=== PATIENT | male | born 1990 | race Caucasian/White ===

== ENCOUNTER 2020-01-06 16:44 | Emergency (ER) | payer OTHER ==
[2020-01-06 16:52] VITALS: TEMP 98.1
--- NOTE | 2020-01-06 17:11 | ED ---
General Adult HPI - General Chief complaint: Chest Pain Stated complaint: Chest pain Time Seen by Provider: 01/06/20 16:56 Source: patient, RN notes reviewed, old records reviewed Mode of arrival: ambulatory Limitations: no limitations - History of Present Illness Initial comments: 29-year-old male history of tetralogy of follow presenting for evaluation of left-sided chest pain. Patient had operative repair as 4-year-old and then again is a 17-year-old with valve replacement. He was placed on propranolol but has not been on this medication in many years. He has not seen a finished cloth examiner or had an echo in at least 10 years. He states he always has a degree of chest pain was long as he can remember, left-sided chest pain. He denies dyspnea. D enies cough or fever. He states he drank heavily 2 days ago and his symptoms have worsened since that time. He states he had several episodes of vomiting after a large amount of alcohol consumption. He states the pain does radiate to his left arm from time to time. - Related Data Allergies Allergy/AdvReac Type Severity Reaction Status Date / Time No Known Allergies Allergy Verified 01/06/20 16:52 Review of Systems ROS Statement: Those systems with pertinent positive or pertinent negative responses have been documented in the HPI. ROS Other: All systems not noted in ROS Statement are negative. 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 History of Any Multi-Drug Resistant Organisms: None Reported Past Surgical History: No Surgical Hx Reported Additional Past Surgical History / Comment(s): open heart x 2 Past Psychological History: No Psychological Hx Reported Smoking Status: Never smoker Past Alcohol Use History: Heavy Past Drug Use History: Marijuana General Exam Limitations: no limitations General appearance: alert, in no apparent distress Head exam: Present: atraumatic, normocephalic Eye exam: Present: normal appearance, PERRL ENT exam: Present: normal exam Neck exam: Present: normal inspection. Absent: tenderness, meningismus Respiratory exam: Present: normal lung sounds bilaterally. Absent: respiratory distress, wheezes Cardiovascular Exam: Present: regular rate, normal rhythm, systolic murmur GI/Abdominal exam: Present: soft. Absent: distended, tenderness, guarding Extremities exam: Present: normal inspection, normal capillary refill. Absent: pedal edema Back exam: Present: normal inspection, full ROM Neurological exam: Present: alert, oriented X3, CN II-XII intact. Absent: motor sensory deficit Psychiatric exam: Present: depressed, flat affect Skin exam: Present: warm, dry, intact. Absent: cyanosis, diaphoretic Course Vital Signs 01/06/20 16:48 Temperature 98.1 F Pulse Rate 59 L Respiratory 16 Rate Blood Pressure 143/88 O2 Sat by Pulse 100 Oximetry EKG Findings - EKG Comments: EKG Findings:: EKG: Sinus bradycardia with AV dissociation, wide-complex, rate of 51, right bundle branch block, QRS duration 150, QTC 431, no ST segment leland vation, there is ST segment depression and T-wave inversion in the precordial leads V1 and V2 V3 and ST segment depression in V4. Medical Decision Making - Medical Decision Making 29-year-old male with cardiac history including repair of tetralogy of fallot, who has been lost to follow-up for 10 years. Presenting with chest pain which is been ongoing but worse over the past 24 hours. Patient's has abnormal EKG with no baseline for comparison. Chest x-ray negative for acute cardiopulmonary disease. Patient has normal CBC, normal CMP, negative troponin. Given this patient's history and the fact that he has not been compliant with medications, has not followed up with a finished cloth examiner in some time. I will place this patient observation for telemetry, serial cardiac enzymes, echo, and cardiology consultation. Case discussed with Dr. Hicks who will admit. - Lab Data Result diagrams: 01/06/20 17:11 01/06/20 17:11 Lab Results 01/06/20 01/06/20 01/06/20 Range/Units 17:11 17:11 17:11 WBC 10.2 (3.8-10.6) k/uL RBC 5.10 (4.30-5.90) m/uL Hgb 17.0 (13.0-17.5) gm/dL Hct 47.5 (39.0-53.0) % MCV 93.2 (80.0-100.0) fL MCH 33.3 (25.0-35.0) pg MCHC 35.8 (31.0-37.0) g/dL RDW 12.6 (11.5-15.5) % Plt Count 204 (150-450) k/uL Neutrophils % 70 % Lymphocytes % 22 % Monocytes % 6 % Eosinophils % 1 % Basophils % 0 % Neutrophils # 7.2 (1.3-7.7) k/uL Lymphocytes # 2.2 (1.0-4.8) k/uL Monocytes # 0.6 (0-1.0) k/uL Eosinophils # 0.1 (0-0.7) k/uL Basophils # 0.0 (0-0.2) k/uL PT 10.8 (9.0-12.0) sec INR 1.0 (<1.2) APTT 22.4 (22.0-30.0) sec Sodium 137 (137-145) mmol/L Potassium 4.0 (3.5-5.1) mmol/L Chloride 103 (98-107) mmol/L Carbon Dioxide 23 (22-30) mmol/L Anion Gap 11 mmol/L BUN 14 (9-20) mg/dL Creatinine 0.84 (0.66-1.25) mg/dL Est GFR (CKD-EPI)AfAm >90 (>60 ml/min/1.73 sqM) Est GFR (CKD-EPI)NonAf >90 (>60 ml/min/1.73 sqM) Glucose 83 (74-99) mg/dL Calcium 9.7 (8.4-10.2) mg/dL Magnesium 2.0 (1.6-2.3) mg/dL Total Bilirubin 1.0 (0.2-1.3) mg/dL AST 30 (17-59) U/L ALT 15 (4-49) U/L Alkaline Phosphatase 106 (38-126) U/L Troponin I (0.000-0.034) ng/mL NT-Pro-B Natriuret Pep pg/mL Total Protein 8.2 (6.3-8.2) g/dL Albumin 5.0 (3.5-5.0) g/dL Lipase 112 (23-300) U/L 01/06/20 01/06/20 Range/Units 17:11 17:11 WBC (3.8-10.6) k/uL RBC (4.30-5.90) m/uL Hgb (13.0-17.5) gm/dL Hct (39.0-53.0) % MCV (80.0-100.0) fL MCH (25.0-35.0) pg MCHC (31.0-37.0) g/dL RDW (11.5-15.5) % Plt Count (150-450) k/uL Neutrophils % % Lymphocytes % % Monocytes % % Eosinophils % % Basophils % % Neutrophils # (1.3-7.7) k/uL Lymphocytes # (1.0-4.8) k/uL Monocytes # (0-1.0) k/uL Eosinophils # (0-0.7) k/uL Basophils # (0-0.2) k/uL PT (9.0-12.0) sec INR (<1.2) APTT (22.0-30.0) sec Sodium (137-145) mmol/L Potassium (3.5-5.1) mmol/L Chloride (98-107) mmol/L Carbon Dioxide (22-30) mmol/L Anion Gap mmol/L BUN (9-20) mg/dL Creatinine (0.66-1.25) mg/dL Est GFR (CKD-EPI)AfAm (>60 ml/min/1.73 sqM) Est GFR (CKD-EPI)NonAf (>60 ml/min/1.73 sqM) Glucose (74-99) mg/dL Calcium (8.4-10.2) mg/dL Magnesium (1.6-2.3) mg/dL Total Bilirubin (0.2-1.3) mg/dL AST (17-59) U/L ALT (4-49) U/L Alkaline Phosphatase (38-126) U/L Troponin I <0.012 (0.000-0.034) ng/mL NT-Pro-B Natriuret Pep 136 pg/mL Total Protein (6.3-8.2) g/dL Albumin (3.5-5.0) g/dL Lipase (23-300) U/L Disposition Clinical Impression: Chest pain, Tetralogy of Fallot Disposition: ADMITTED IP TO THIS [facility] Condition: Stable Is patient prescribed a controlled substance at d/c from ED?: No Referrals: None,Stated [Primary Care Provider] - 1-2 days Decision to Admit Reason: Admit from EC Decision Date: 01/06/20 Decision Time: 18:16
[2020-01-06 17:20] LABS: Basophils % (A) 0 %; Eosinophils # (A) 0.1 k/uL (0-0.7); Eosinophils % (A) 1 %; HCT 47.5 % (39.0-53.0); Lymphocytes # (A) 2.2 k/uL (1.0-4.8); Lymphocytes % (A) 22 %; MCH 33.3 pg (25.0-35.0); MCHC 35.8 g/dL (31.0-37.0); MCV 93.2 fL (80.0-100.0); Mean Platelet Volume 8.6; Monocytes # (A) 0.6 k/uL (0-1.0); Monocytes % (A) 6 %; Neutrophils # (A) 7.2 k/uL (1.3-7.7); Neutrophils % (A) 70 %; Platelet Count 204 k/uL (150-450); RDW 12.6 % (11.5-15.5); WBC 10.2 k/uL (3.8-10.6)
[2020-01-06 17:35] LABS: ALT 15 U/L (4-49); AST 30 U/L (17-59); African American GFR (CKD) >90 (>60 ml/min/1.73 sqM); Alkaline Phosphatase 106 U/L (38-126); Anion Gap 11 mmol/L; Blood Urea Nitrogen 14 mg/dL (9-20); Calcium 9.7 mg/dL (8.4-10.2); Carbon Dioxide 23 mmol/L (22-30); Chloride 103 mmol/L (98-107); Glucose 83 mg/dL (74-99); Non-African American GFR(CKD) >90 (>60 ml/min/1.73 sqM); Sodium 137 mmol/L (137-145); Total Protein 8.2 g/dL (6.3-8.2)
[2020-01-06 17:43] LABS: Partial Thromboplastin Time 22.4 sec (22.0-30.0); Prothrombin Time 10.8 sec (9.0-12.0)
--- NOTE | 2020-01-06 17:56 | XR ---
EXAMINATION TYPE: XR chest 2V DATE OF EXAM: 01/06/2020 COMPARISON: NONE HISTORY: Chest pain TECHNIQUE: 2 views FINDINGS: Heart size is normal. There are sternal wires. There is right side aortic arch. There is ca rdiac valve surgery noted. There is no pleural effusion. There are no hilar masses. There are chest l trish. There is some left rib deformity consistent with previous thoracotomy. IMPRESSION: No active cardiopulmonary disease.
[2020-01-06] MEDS ORDERED: NALOXONE 0.4 MG/ML 1 ML VIAL IV PRN (18:12)
[2020-01-06] MEDS ORDERED: ACETAMINOPHEN TAB 325 MG TAB PO PRN (18:12)
[2020-01-06 18:26] VITALS: PULSE 54
[2020-01-06 19:08] VITALS: BP 106/84; RESP 18
--- NOTE | 2020-01-06 19:15 | ED ---
Medical Decision Making - Lab Data Result diagrams: 01/06/20 17:11 01/06/20 17:11 Lab Results 01/06/20 01/06/20 01/06/20 Range/Units 17:11 17:11 17:11 WBC 10.2 (3.8-10.6) k/uL RBC 5.10 (4.30-5.90) m/uL Hgb 17.0 (13.0-17.5) gm/dL Hct 47.5 (39.0-53.0) % MCV 93.2 (80.0-100.0) fL MCH 33.3 (25.0-35.0) pg MCHC 35.8 (31.0-37.0) g/dL RDW 12.6 (11.5-15.5) % Plt Count 204 (150-450) k/uL Neutrophils % 70 % Lymphocytes % 22 % Monocytes % 6 % Eosinophils % 1 % Basophils % 0 % Neutrophils # 7.2 (1.3-7.7) k/uL Lymphocytes # 2.2 (1.0-4.8) k/uL Monocytes # 0.6 (0-1.0) k/uL Eosinophils # 0.1 (0-0.7) k/uL Basophils # 0.0 (0-0.2) k/uL PT 10.8 (9.0-12.0) sec INR 1.0 (<1.2) APTT 22.4 (22.0-30.0) sec Sodium 137 (137-145) mmol/L Potassium 4.0 (3.5-5.1) mmol/L Chloride 103 (98-107) mmol/L Carbon Dioxide 23 (22-30) mmol/L Anion Gap 11 mmol/L BUN 14 (9-20) mg/dL Creatinine 0.84 (0.66-1.25) mg/dL Est GFR (CKD-EPI)AfAm >90 (>60 ml/min/1.73 sqM) Est GFR (CKD-EPI)NonAf >90 (>60 ml/min/1.73 sqM) Glucose 83 (74-99) mg/dL Calcium 9.7 (8.4-10.2) mg/dL Magnesium 2.0 (1.6-2.3) mg/dL Total Bilirubin 1.0 (0.2-1.3) mg/dL AST 30 (17-59) U/L ALT 15 (4-49) U/L Alkaline Phosphatase 106 (38-126) U/L Troponin I (0.000-0.034) ng/mL NT-Pro-B Natriuret Pep pg/mL Total Protein 8.2 (6.3-8.2) g/dL Albumin 5.0 (3.5-5.0) g/dL Lipase 112 (23-300) U/L 01/06/20 01/06/20 Range/Units 17:11 17:11 WBC (3.8-10.6) k/uL RBC (4.30-5.90) m/uL Hgb (13.0-17.5) gm/dL Hct (39.0-53.0) % MCV (80.0-100.0) fL MCH (25.0-35.0) pg MCHC (31.0-37.0) g/dL RDW (11.5-15.5) % Plt Count (150-450) k/uL Neutrophils % % Lymphocytes % % Monocytes % % Eosinophils % % Basophils % % Neutrophils # (1.3-7.7) k/uL Lymphocytes # (1.0-4.8) k/uL Monocytes # (0-1.0) k/uL Eosinophils # (0-0.7) k/uL Basophils # (0-0.2) k/uL PT (9.0-12.0) sec INR (<1.2) APTT (22.0-30.0) sec Sodium (137-145) mmol/L Potassium (3.5-5.1) mmol/L Chloride (98-107) mmol/L Carbon Dioxide (22-30) mmol/L Anion Gap mmol/L BUN (9-20) mg/dL Creatinine (0.66-1.25) mg/dL Est GFR (CKD-EPI)AfAm (>60 ml/min/1.73 sqM) Est GFR (CKD-EPI)NonAf (>60 ml/min/1.73 sqM) Glucose (74-99) mg/dL Calcium (8.4-10.2) mg/dL Magnesium (1.6-2.3) mg/dL Total Bilirubin (0.2-1.3) mg/dL AST (17-59) U/L ALT (4-49) U/L Alkaline Phosphatase (38-126) U/L Troponin I <0.012 (0.000-0.034) ng/mL NT-Pro-B Natriuret Pep 136 pg/mL Total Protein (6.3-8.2) g/dL Albumin (3.5-5.0) g/dL Lipase (23-300) U/L Disposition Clinical Impression: Chest pain, Tetralogy of Fallot Disposition: HOME SELF-CARE Condition: Fair Is patient prescribed a controlled substance at d/c from ED?: No Time of Disposition: 19:14
== END 2020-01-06 19:20 | disposition home or self-care (01) ==
LOC: EC 16:44 → UNDOADMOB 18:12 → 3NCARDOBS 18:12 → EC 19:20
DX: R07.9 Chest pain, unspecified (principal); R94.31 Abnormal electrocardiogram [ECG] [EKG]; R11.10 Vomiting, unspecified; Z87.74 Personal history of (corrected) congenital malformations of heart and circulatory system; Z98.890 Other specified postprocedural states
CPT/HCPCS: 36415; 71046; 80053; 83690; 83735; 83880; 84484; 85025; 85610; 85730; 99285

== ENCOUNTER 2020-04-07 17:14 | Inpatient (IN) | payer OTHER ==
--- NOTE | 2020-04-07 17:31 | ED ---
Psych HPI - General Stated Complaint: Suicidal Time Seen by Provider: 04/07/20 17:14 Source: patient, EMS, RN notes reviewed Mode of arrival: EMS - History of Present Illness Initial Comments: This is a 29-year-old male history depression and past who was brought in by EMS after voicing desire to kill himself. He is suicidal and is not sure why exactly he did take 3 of a friend's Bactrim DS tablets prior to arrival. He denies any drug or alcohol. He did admit to drinking alcohol yesterday. MD Complaint: suicidal ideation, feels depressed - Related Data Home Medications Medication Instructions Recorded Confirmed Aspirin EC [Ecotrin Low Dose] 81 mg PO DAILY 04/07/20 04/07/20 Allergies Allergy/AdvReac Type Severity Reaction Status Date / Time No Known Allergies Allergy Verified 04/07/20 18:40 Review of Systems ROS Statement: Those systems with pertinent positive or pertinent negative responses have been documented in the HPI. ROS Other: All systems not noted in ROS Statement are negative. 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 History of Any Multi-Drug Resistant Organisms: None Reported Past Surgical History: No Surgical Hx Reported Additional Past Surgical History / Comment(s): open heart x 2 Past Psychological History: No Psychological Hx Reported Smoking Status: Never smoker Past Alcohol Use History: Heavy Past Drug Use History: Marijuana General Exam - General Exam Comments Initial Comments: This a well-developed asthenic appearing male who is awake alert oriented x3 does demonstrate severe body odor and is unkempt Limitations: no limitations General appearance: alert, in no apparent distress Head exam: Present: atraumatic, normocephalic, normal inspection Eye exam: Present: normal appearance, PERRL, EOMI. Absent: scleral icterus, conjunctival injection, periorbital swelling ENT exam: Present: normal exam, mucous membranes moist Neck exam: Present: normal inspection. Absent: tenderness, meningismus, lymphadenopathy Respiratory exam: Present: normal lung sounds bilaterally, other (Well-healed surgical scar on his chest having surgery for tetralogy of fallot). Absent: respiratory distress, wheezes, rales, rhonchi, stridor Cardiovascular Exam: Present: regular rate, normal rhythm, normal heart sounds. Absent: systolic murmur, diastolic murmur, rubs, gallop, clicks GI/Abdominal exam: Present: soft, normal bowel sounds. Absent: distended, tenderness, guarding, rebound, rigid Extremities exam: Present: normal inspection, full ROM, normal capillary refill. Absent: tenderness, pedal edema, joint swelling, calf tenderness Back exam: Present: normal inspection Neurological exam: Present: alert, oriented X3, CN II-XII intact Psychiatric exam: Present: depressed, flat affect, suicidal ideation Skin exam: Present: warm, dry, intact, normal color. Absent: rash Course Vital Signs 04/07/20 17:15 Temperature 98.2 F Pulse Rate 63 Respiratory 16 Rate Blood Pressure 121/81 O2 Sat by Pulse 97 Oximetry Medical Decision Making - Medical Decision Making The patient was evaluated by psychiatric service she will be admitted for inpatient care and treatment - Lab Data Lab Results 04/07/20 Range/Units 17:20 Urine Opiates Screen Not Detected (NotDetected) Ur Oxycodone Screen Not Detected (NotDetected) Urine Methadone Screen Not Detected (NotDetected) Ur Propoxyphene Screen Not Detected (NotDetected) Ur Barbiturates Screen Not Detected (NotDetected) U Tricyclic Antidepress Not Detected (NotDetected) Ur Phencyclidine Scrn Not Detected (NotDetected) Ur Amphetamines Screen Not Detected (NotDetected) U Methamphetamines Scrn Not Detected (NotDetected) U Benzodiazepines Scrn Not Detected (NotDetected) Urine Cocaine Screen Not Detected (NotDetected) U Marijuana (THC) Screen Detected H (NotDetected) Disposition Clinical Impression: Depression, Suicidal ideation Disposition: TRANSFER TO PSYCH HOSP/UNIT Condition: Stable
[2020-04-07 18:25] LABS: Amphetamine Screen,Urine Not Detected (NotDetected); Barbiturate Screen,Urine Not Detected (NotDetected); Benzodiazepines Screen,Urine Not Detected (NotDetected); Cocaine Screen,Urine Not Detected (NotDetected); Methadone Screen, Urine Not Detected (NotDetected); Opiate Screen,Urine Not Detected (NotDetected); Oxycodone Screen, Urine Not Detected (NotDetected); Phencyclidine Screen,Urine Not Detected (NotDetected); Tricyclic Antidepressant,Urine Not Detected (NotDetected); Urn Cannabinoid Scrn Detected (NotDetected)
[2020-04-07] MEDS ORDERED: ACETAMINOPHEN TAB 325 MG TAB PO PRN (18:52)
[2020-04-07] MEDS ORDERED: MAG HYDROX/AL HYDROX/SIMETH 30 ML CUP PO PRN (18:52)
[2020-04-07] MEDS ORDERED: MAGNESIUM HYDROXIDE 2,400 MG/10 ML CUP PO PRN (18:52)
[2020-04-07] MEDS ORDERED: LORazepam 1 MG TAB PO PRN (18:52)
[2020-04-07] MEDS ORDERED: ZIPRASIDONE 20 MG VIAL IM PRN (18:52)
[2020-04-07] MEDS ORDERED: NICOTINE 21MG/24HR PATCH TRANSDERM STA (20:29)
--- NOTE | 2020-04-07 22:33 | P.CONS ---
History of Present Illness - Reason for Consult Consult date: 04/07/20 - History of Present Illness Patient is a 29-year-old male with a PMH of tobacco abuse and tetralogy of fallot who presented to the emergency room with the depression and suicidal ideation. The patient was admitted to the mental health unit where he was seen and evaluated. The patient reported feeling better since his admission. He reports that he has been feeling down due to his housing situation as he is set to be evicted a few weeks and does not have a place to go. He does not have a specific plan as to how to hurt himself. Also denied any additional complaints. Denied chest discomfort, shortness of breath, nausea, vomiting, palpitations. Denied fever, chills, cough. Denied abdominal pain, or diarrhea. Urine toxicology was positive for marijuana. Review of Systems Pertinent positives and negatives as discussed in HPI, a complete review of systems was performed and all other systems are negative. 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 History of Any Multi-Drug Resistant Organisms: None Reported Past Surgical History: No Surgical Hx Reported Additional Past Surgical History / Comment(s): open heart x 2 Past Psychological History: No Psychological Hx Reported Smoking Status: Never smoker Past Alcohol Use History: Heavy Past Drug Use History: Marijuana Medications and Allergies Home Medications Medication Instructions Recorded Confirmed Type Aspirin EC [Ecotrin Low Dose] 81 mg PO DAILY 04/07/20 04/07/20 History Allergies Allergy/AdvReac Type Severity Reaction Status Date / Time No Known Allergies Allergy Verified 04/07/20 18:40 Physical Exam Vitals: Vital Signs Temp Pulse Pulse Resp BP BP Pulse Ox 04/07/20 19:18 97.3 F L 62 18 103/66 98 04/07/20 17:15 98.2 F 63 16 121/81 97 Intake and Output 04/07/20 04/07/20 04/07/20 06:59 14:59 22:59 Other: Weight 55.2 kg General: non toxic, no distress, appears at stated age, normal weight Derm: no unusual rashes/lesions no unusual ecchymoses, warm, dry Head: atraumatic, normocephalic, symmetric Eyes: EOMI, no lid lag, anicteric sclera, pupils equal round reactive to light ENT: Nose and ears atraumatic, no thrush, no pharyngeal erythema Neck: No thyromegaly, no cervical lymphadenopathy, trachea midline, supple Mouth: no lip lesion, mucus membranes moist, poor dentition Cardiovascular: S1S2 reg, holosystolic grade 4 murmur, positive posterior tibial pulse bilateral, no edema, capillary refill less than 2 seconds Lungs: CTA bilateral, no rhonchi, no rales , no accessory muscle use Abdominal: soft, nontender to palpation, no guarding, no appreciable organomegaly, normal bowel sounds Ext: no gross muscle atrophy, muscle strength 5 out of 5 in all 4 extremities grossly, no contractures, Neuro: CN II-XI grossly intact, light touch intact all 4 extremities, finger to nose within normal limits, Psych: Alert, oriented, appropriate affect Results Labs: Abnormal Lab Results - Last 24 Hours (Table) 04/07/20 Range/Units 17:20 U Marijuana (THC) Screen Detected H (NotDetected) Assessment and Plan Plan: Tobacco and marijuana abuse -Nicotine patch as needed -Advised on the importance of cessation Depression and suicidal ideation -As per psychiatry Tetralogy of fallot -Patient asympomatic. Reports he has not seen a physician in several years. -Advised patient to follow-up with a [facility] following discharge Thank you for allowing us to participate in the care of this patient. We will follow peripherally. Do not hesitate to contact us with questions. Someone can be reached from the [facility] hospitalist group at all hours of the day at [phone].
[2020-04-08 07:54] LABS: Basophils % (A) 1 %; Eosinophils % (A) 1 %; HCT 47.5 % (39.0-53.0); HGB 16.7 gm/dL (13.0-17.5); Lymphocytes # (A) 1.8 k/uL (1.0-4.8); Lymphocytes % (A) 40 %; MCH 33.3 pg (25.0-35.0); MCHC 35.1 g/dL (31.0-37.0); MCV 94.8 fL (80.0-100.0); Mean Platelet Volume 8.7; Monocytes # (A) 0.4 k/uL (0-1.0); Monocytes % (A) 9 %; Neutrophils # (A) 2.1 k/uL (1.3-7.7); Neutrophils % (A) 46 %; Platelet Count 209 k/uL (150-450); RBC 5.01 m/uL (4.30-5.90); RDW 12.1 % (11.5-15.5); WBC 4.5 k/uL (3.8-10.6)
[2020-04-08 08:07] LABS: ALT 18 U/L (4-49); AST 30 U/L (17-59); African American GFR (CKD) >90 (>60 ml/min/1.73 sqM); Albumin 4.7 g/dL (3.5-5.0); Alkaline Phosphatase 69 U/L (38-126); Anion Gap 10 mmol/L; Blood Urea Nitrogen 20 mg/dL (9-20); Calcium 9.8 mg/dL (8.4-10.2); Carbon Dioxide 26 mmol/L (22-30); Chloride 104 mmol/L (98-107); Cholesterol 180 mg/dL (<200); Glucose 84 mg/dL (74-99); HDL Cholesterol 50 mg/dL (40-60); LDL Cholesterol,Calculated 113 mg/dL (0-99); Non-African American GFR(CKD) >90 (>60 ml/min/1.73 sqM); Potassium 4.6 mmol/L (3.5-5.1); Sodium 140 mmol/L (137-145); Total Bilirubin 1.3 mg/dL (0.2-1.3); Triglycerides 84 mg/dL (<150)
[2020-04-08] MEDS: THIAMINE 100 MG TAB PO SCH (09:00)
[2020-04-08] MEDS: NICOTINE 21MG/24HR PATCH TRANSDERM SCH (09:00)
[2020-04-08] MEDS: MULTIVITAMINS, THERA 1 EACH TAB PO SCH (09:00)
[2020-04-08 11:57] LABS: Hemoglobin A1C 4.3 % (4.0-6.0)
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
[2020-04-08] MEDS: FLUoxetine HCL 20 MG CAP PO SCH (12:34)
[2020-04-08 12:53] LABS: Appearance,Urine Clear (Clear); Bilirubin,Urine Negative (Negative); Blood,Urine Negative (Negative); Color,Urine Yellow; Glucose,Urine (UA) Negative (Negative); Ketones,Urine Negative (Negative); Leukocyte Esterase,Urine Negative (Negative); Nitrite,Urine Negative (Negative); Protein,Urine Negative (Negative); Specific Gravity,Urine 1.026 (1.001-1.035)
[2020-04-08 17:29] LABS: Urine Alcohol Negative (Negative); Urine Barbiturate Negative (Negative); Urine Cocaine Negative (Negative); Urine Methadone Negative (Negative); Urine Opiates Negative (Negative); Urine Phencyclidine Negative (Negative)
[2020-04-08] MEDS: traZODone HCL 50 MG TAB PO SCH (20:20)
[2020-04-09] MEDS: NICOTINE 21MG/24HR PATCH TRANSDERM SCH (09:43)
[2020-04-09] MEDS: MULTIVITAMINS, THERA 1 EACH TAB PO SCH (09:43)
[2020-04-09] MEDS: FLUoxetine HCL 20 MG CAP PO SCH (09:43)
[2020-04-09] MEDS: THIAMINE 100 MG TAB PO SCH (09:43)
[2020-04-09] MEDS ORDERED: hydrOXYzine pamoate 25 MG CAP PO PRN (12:23)
--- NOTE | 2020-04-09 12:42 | P.PN ---
Progress Note - Text Progress Note Date: 04/09/20 I reviewed medical records ,did interview patient and case was discussed in treatment team I reviewed medical consult ((Tobacco and marijuana abuse -Nicotine patch as needed -Advised on the importance of cessation Depression and suicidal ideation -As per psychiatry Tetralogy of fallot -Patient asympomatic. Reports he has not seen a physician in several years. -Advised patient to follow-up with a Back Tacker following discharge Slept 7 hours ,participating in some groups TODAY VITALS:TemP:97.6,P:56,R;16,BP:105/56 Had PRN Ativan this morning INTERVAL : patient was walking in [place] and agreed to follow me to office,denies any depressive symptoms ,reports having high anxiety ,denies any hallucinations,talked about his 6 years old son whom he did not see for three years,his girl friend who is 4 months came to visit as well as his mother and his sister,patient has been drinking uo to fifth once or twice a week ,in addition smoking "Weeds "up to ounce a day ,reports that Trazodone helped his sleep ,endorses "Nausea "and heartburn ,also reports chronic back pain Mental status exam: Patient was wearing his own clothing, long hair ,hygiene and grooming are marginal ,denies any current suicidal or homicidal ideation ,denies any current hallucination or delusional thinking,somatic preoccupied, avoiding eyes contact ,seems anxious and nervous,, alert to person and place , ,insight and judgment are limited ASSESSMENT :Unspecified mood disorder versus MDD ,alcohol and Cannabis use disorder PLAN: Patient continues to meet criteria for inpatient psychiatric admission for symptom stabilization ,continue Prozac for mood and anxiety ,Trazodone for sleep ,d/c Ativan PRN Vistaril for anxiety ,patient will call access for [facility] [place],encourage groups participation , ,SW on board for discharge planning
[2020-04-09] MEDS: NICOTINE POLACRILEX 2 MG GUM BUCCAL PRN ×3 (13:10→21:56)
[2020-04-09] MEDS: traZODone HCL 50 MG TAB PO SCH (21:38)
[2020-04-10] MEDS: PANTOPRAZOLE 40 MG TABLET PO SCH (09:15)
[2020-04-10] MEDS: NICOTINE POLACRILEX 2 MG GUM BUCCAL PRN ×4 (09:16→21:28)
[2020-04-10] MEDS: THIAMINE 100 MG TAB PO SCH (09:16)
[2020-04-10] MEDS: MULTIVITAMINS, THERA 1 EACH TAB PO SCH (09:16)
[2020-04-10] MEDS: FLUoxetine HCL 20 MG CAP PO SCH (09:16)
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
[2020-04-10] MEDS: traZODone HCL 50 MG TAB PO SCH (21:28)
[2020-04-11 07:18] VITALS: BP 121/72; PULSE 50; RESP 16; TEMP 97.9
[2020-04-11] MEDS: THIAMINE 100 MG TAB PO SCH (08:44)
[2020-04-11] MEDS: FLUoxetine HCL 20 MG CAP PO SCH (08:44)
[2020-04-11] MEDS: PANTOPRAZOLE 40 MG TABLET PO SCH (08:44)
[2020-04-11] MEDS: MULTIVITAMINS, THERA 1 EACH TAB PO SCH (08:44)
[2020-04-11] MEDS: NICOTINE POLACRILEX 2 MG GUM BUCCAL PRN (08:46)
--- NOTE | 2020-04-11 12:56 | DS ---
DISCHARGE SUMMARY DATE OF ADMISSION: 04/07/2020. DATE OF DISCHARGE: 04/11/2020 PV DESIGN ENGINEER: Dr. Jordyn Isaac for history and physical and medical management. DISCHARGE DIAGNOSES: 1. Depressive disorder, unspecified versus major depression disorder, recurrent. 2. Alcohol use disorder. 3. Cannabis use disorder. 4. Nicotine dependence. HISTORY AND PHYSICAL: Please refer to the dictation by Dr. Guthrie as he did admit the patient on April 08. HISTORY AND PHYSICAL EXAM: Patient is 29, single male who is currently living with a roommate in a house and his girlfriend who is , also living with him. Patient presented to the emergency room with depression and suicidal ideation. Patient stated that he took 3 tablets of his friend Bactrim in suicidal attempt at home before he came to the ER. Patient has been drinking heavily up to a fifth of hard liquor prior to coming into the hospital, his urine drug screen was positive for marijuana. When he was seen by Dr. Guthrie he stated that he has been feeling depressed, not able to sleep at night, as he did get into minor argument with his girlfriend the day before the admission, as he has been smoking weed every couple of hours and drinking up to a fifth of hard liquor and she does not agree about this. He stated that he took this pills, just a cry for help and also "to get my girlfriend's attention." When he was evaluated, he denied any suicidal or homicidal ideation, intent, or plan. He denied any flight of idea or racing thoughts. He denied any auditory or visual hallucination, but he stated that he has been using marijuana as they mentioned before every 1-2 hours. Sometimes, he has been smoking up to 1 ounce a day. For complete evaluation, please refer to initial evaluation. HOSPITAL COURSE: Patient was admitted on a voluntary basis as he did sign a voluntary form and Dr. Guthrie starting the patient on Prozac 20 mg daily for mood and trazodone at bedtime for insomnia. In addition, he did start the patient on CIWA protocol with Ativan for alcohol withdrawal. The patient was seen by the Internal Medicine who did recommend that the patient need to follow up with packing room worker after discharge as the patient has Tetralogy of Fallot with previous cardiac surgery when he 17 years of age. We he were doing CIWA and when CIWA was 0 for 24 hours, I discontinued the Ativan and I did start him on Vistaril p.r.n. for anxiety to avoid cross addiction. Patient was participating in most of the group during his stay here the patient girlfriend came to visit him and they had did reconcile it even she called. She stated that she wanted him to come back to live with her in the house and marriage and family social worker did contact her and she confirms there is no gun in the house. Patient was willing to pursue dual diagnosis outpatient treatment, especially after I did discuss with him to call [facility] and transfer to [place]. He stated that he preferred outpatient as he is trying to find a job On the day of the discharge, patient denied any suicidal or homicidal ideation, intent, or plan. He denied any auditory or visual hallucination. He endorsed wanting to live for his health and for his baby who was due in 4 months. He denied any access to gun or weapon. Denied any paranoia and did not endorse any delusional. He does have significant history of alcohol and cannabis use and denies and he was counseled on abstaining from all the substances including alcohol and marijuana. I did discuss with him [facility] or [facility] for substance inpatient abuse treatment. The patient declined and he stated he wanted to pursue outpatient dual diagnosis. I did senior living sales counselor the patient for followup with mental health and with his primary care physician and also packing room worker. MENTAL STATUS EXAMINATION: At the time of the discharge, the patient appears his stated age. Pleasant, cooperative, fair hygiene and grooming. He was sitting without agitation, cooperative. Speech is coherent. Stated mood is better. Affect is constricted. He denied having any suicidal or homicidal ideation, intent, or plan. He denied any auditory or visual hallucination. There is no evidence of any delusional thinking. He is alert, oriented x3. His judgment and insight improved. PLAN: The patient will be discharged today. 1. He was given Prozac 20 mg for 2 weeks and one refill. 2. Trazodone 25 mg for insomnia 2 weeks and 1 refill. 3. Vistaril mg twice a day as needed for anxiety and I did give him only 10 capsule patient to continue on multivitamin and thiamine in addition to baby aspirin. The patient was counseled for the need to for medication compliance and appropriate followup. field crop farm worker will coordinate patient intake at [facility]. The patient was instructed to return to the hospital or seek immediate medical care if any symptom reoccur. MMODL / IJN: [id number] /
== END 2020-04-11 14:11 | disposition home or self-care (01) | DRG 885 ==
LOC: EC 17:14 → 3MHU 18:50
PROVIDERS: ADMIT Psychiatry & Neurology Psychiatry; ATTEND Psychiatry & Neurology Psychiatry
DX: F33.9 Major depressive disorder, recurrent, unspecified (principal); Q21.3 Tetralogy of Fallot; R45.851 Suicidal ideations; F32.9 Major depressive disorder, single episode, unspecified; F12.10 Cannabis abuse, uncomplicated; F17.200 Nicotine dependence, unspecified, uncomplicated; G47.00 Insomnia, unspecified; Z72.89 Other problems related to lifestyle; Z71.41 Alcohol abuse counseling and surveillance of alcoholic; Z71.51 Drug abuse counseling and surveillance of drug abuser; Z56.0 Unemployment, unspecified; Z79.82 Long term (current) use of aspirin; Z98.890 Other specified postprocedural states
CPT/HCPCS: 80053; 80061; 80306; 81003; 82075; 83036; 84443; 85025; 99285

== ENCOUNTER 2021-02-22 11:24 | Emergency (ER) | payer OTHER ==
[2021-02-22] MEDS ORDERED: ACET/COD 300 MG/30 MG STARTER PACK 6 TAB BTL PO STA (11:59)
[2021-02-22 12:01] VITALS: BP 96/62; PULSE 52; RESP 20; TEMP 98.1
--- NOTE | 2021-02-22 12:02 | ED ---
General Adult HPI - General Stated complaint: facial pain Time Seen by Provider: 02/22/21 11:59 Source: patient, RN notes reviewed Mode of arrival: ambulatory Limitations: no limitations - History of Present Illness Initial comments: This a 30-year-old male presents emergency Department chief complaint abdominal pain, swelling on the left side. Patient states she's been having discomfort last couple weeks but just worsened overnight inspection the left. Patient is waiting for dental insurance. Patient denies any fevers or chills no difficulty swallowing. Patient has NO KNOWN DRUG ALLERGIES. Patient offers no complaints. - Related Data Home Medications Medication Instructions Recorded Confirmed Aspirin EC [Ecotrin Low Dose] 81 mg PO DAILY 04/07/20 04/07/20 Previous Rx's Medication Instructions Recorded FLUoxetine HCL [PROzac] 20 mg PO DAILY 14 Days cap 04/11/20 Multivitamins, Thera [Multivitamin 1 each PO DAILY 14 Days tab 04/11/20 (formulary)] Pantoprazole [Protonix] 40 mg PO [id number] 14 Days 04/11/20 tablet. Thiamine [Vitamin B-1] 100 mg PO DAILY 14 Days tab 04/11/20 hydrOXYzine pamoate [Vistaril] 25 mg PO Q6HR PRN #10 cap 04/11/20 traZODone HCL [Desyrel] 25 mg PO HS 14 Days tab 04/11/20 Ibuprofen [Motrin] 600 mg PO Q8HR PRN #20 tab 02/22/21 Penicillin V Potassium [Pen Vee K] 500 mg PO QID #40 tablet 02/22/21 Allergies Allergy/AdvReac Type Severity Reaction Status Date / Time No Known Allergies Allergy Verified 02/03/21 22:51 Review of Systems ROS Statement: Those systems with pertinent positive or pertinent negative responses have been documented in the HPI. ROS Other: All systems not noted in ROS Statement are negative. 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 Absent: scleral icterus, conjunctival injection, periorbital swelling ENT exam: Present: mucous membranes moist. Absent: normal oropharynx (Multiple dental caries no drainable abscess mild swelling on the left mandibular region) Neck exam: Present: normal inspection. Absent: tenderness, meningismus, lymphadenopathy Respiratory exam: Present: normal lung sounds bilaterally. Absent: respiratory distress, wheezes, rales, rhonchi, stridor Cardiovascular Exam: Present: regular rate, normal rhythm, normal heart sounds. Absent: systolic murmur, diastolic murmur, rubs, gallop, clicks Medical Decision Making - Medical Decision Making Patient was placed on antibiotics for follow-up with dentist return parameters were discussed. Disposition Clinical Impression: Pain, dental, Dental infection Disposition: HOME SELF-CARE Condition: Stable Instructions (If sedation given, give patient instructions): Toothache (ED) Additional Instructions: Please return to the Emergency Department if symptoms worsen or any other concerns.Please follow up with the [facility]. [facility] [address], [place] [address]. Phone number for new patients or [phone] for existing patients. Prescriptions: Ibuprofen [Motrin] 600 mg PO Q8HR PRN #20 tab PRN Reason: Pain Penicillin V Potassium [Pen Vee K] 500 mg PO QID #40 tablet Is patient prescribed a controlled substance at d/c from ED?: No Referrals: None,Stated [Primary Care Provider] - 1-2 days Time of Disposition: 12:01
== END 2021-02-22 12:34 | disposition home or self-care (01) ==
LOC: EC 11:24
DX: K08.89 Other specified disorders of teeth and supporting structures (principal); K04.7 Periapical abscess without sinus; F12.90 Cannabis use, unspecified, uncomplicated; Z79.82 Long term (current) use of aspirin
CPT/HCPCS: 99283

== ENCOUNTER 2022-01-30 16:25 | Emergency (ER) | payer OTHER ==
[2022-01-30 16:30] VITALS: TEMP 98.1
--- NOTE | 2022-01-30 16:43 | ED ---
General Adult HPI - General Chief complaint: ENT Stated complaint: Difficulty swallowing Time Seen by Provider: 01/30/22 16:31 Source: patient Mode of arrival: ambulatory Limitations: no limitations - History of Present Illness Initial comments: Patient is a 31-year-old male presents to the emergency room with multiple vague complaints including numbness and tingling in his face and neck region that is now gone but he has some "in his hands sometimes" he is complaining of occasional difficulty in swallowing with no significant problems at this time. He is also reporting difficulty in sleeping at times and notes that he had to sleep in the park last [place] and prior to that he was sleeping at a friend's house for a few days where he states that the air conditioning was very cold and he believes that they have caused some irritation in his throat. He does have a past medical history significant for congenital cardiovascular anomalies but he denies any chest pain, shortness of breath, orthopnea or lower extremity edema. He denies any headache or dizziness. He is a past medical history of depression and anxiety and is not currently taking his medications for these medical illnesses but denies any suicidal thought, homicidal thoughts, or hallucinations or delusions. - Related Data Home Medications Medication Instructions Recorded Confirmed No Known Home Medications 01/30/22 01/30/22 Allergies Allergy/AdvReac Type Severity Reaction Status Date / Time No Known Allergies Allergy Verified 01/30/22 18:04 Review of Systems ROS Statement: Those systems with pertinent positive or pertinent negative responses have been documented in the HPI. ROS Other: All systems not noted in ROS Statement are negative. 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 Absent: scleral icterus, conjunctival injection, periorbital swelling ENT exam: Present: normal exam, mucous membranes moist Neck exam: Present: normal inspection. Absent: tenderness, meningismus, lymphadenopathy Respiratory exam: Present: normal lung sounds bilaterally. Absent: respiratory distress, wheezes, rales, rhonchi, stridor Cardiovascular Exam: Present: regular rate, normal rhythm, normal heart sounds, systolic murmur. Absent: diastolic murmur, rubs, gallop, clicks GI/Abdominal exam: Present: soft, normal bowel sounds. Absent: distended, tenderness, guarding, rebound, rigid Extremities exam: Present: normal inspection, full ROM, normal capillary refill. Absent: tenderness, pedal edema, joint swelling, calf tenderness Back exam: Present: normal inspection Neurological exam: Present: alert, oriented X3, CN II-XII intact Psychiatric exam: Present: flat affect Skin exam: Present: warm, dry, intact, normal color. Absent: rash Course Vital Signs 01/30/22 16:27 Temperature 98.1 F Pulse Rate 101 H Respiratory 20 Rate Blood Pressure 144/86 O2 Sat by Pulse 100 Oximetry Medical Decision Making - Medical Decision Making 31-year-old male presents emergency room with multiple vague complaints which do not appear to be bothering him at this time of exam. Due to cardiovascular and psychiatric history will check chest x-ray, EKG, drug screen along with alcohol level and CBC and CMP EKG unchanged from baseline anomalies. Chest x-ray shows no acute cardiopulmonary process. CMP stable. CBC normal. Alcohol level less than 10. Unable to give urine for drug screen but denies any recent drug usage. Findings discussed with patient he is agreeable to discharge with follow-up with his primary care provider. He has been drinking fluids well during his stay in the emergency room. Case discussed with Dr. Coelho. - Lab Data Result diagrams: 01/30/22 17:03 01/30/22 17:03 Lab Results 01/30/22 01/30/22 01/30/22 Range/Units 17:03 17:03 17:03 WBC 7.7 (3.8-10.6) k/uL RBC 5.14 (4.30-5.90) m/uL Hgb 16.9 (13.0-17.5) gm/dL Hct 47.5 (39.0-53.0) % MCV 92.5 (80.0-100.0) fL MCH 32.8 (25.0-35.0) pg MCHC 35.4 (31.0-37.0) g/dL RDW 12.5 (11.5-15.5) % Plt Count 219 (150-450) k/uL MPV 8.9 Neutrophils % 71 % Lymphocytes % 16 % Monocytes % 9 % Eosinophils % 0 % Basophils % 1 % Neutrophils # 5.4 (1.3-7.7) k/uL Lymphocytes # 1.3 (1.0-4.8) k/uL Monocytes # 0.7 (0-1.0) k/uL Eosinophils # 0.0 (0-0.7) k/uL Basophils # 0.0 (0-0.2) k/uL PT 11.0 (9.0-12.0) sec INR 1.0 (<1.2) APTT 22.4 (22.0-30.0) sec Sodium 141 (137-145) mmol/L Potassium 3.4 L (3.5-5.1) mmol/L Chloride 99 (98-107) mmol/L Carbon Dioxide 23 (22-30) mmol/L Anion Gap 19 mmol/L BUN 7 L (9-20) mg/dL Creatinine 0.75 (0.66-1.25) mg/dL Est GFR (CKD-EPI)AfAm >90 (>60 ml/min/1.73 sqM) Est GFR (CKD-EPI)NonAf >90 (>60 ml/min/1.73 sqM) Glucose 90 (74-99) mg/dL POC Glucose (mg/dL) (70-110) mg/dL POC Glu Ep Technologist ID Calcium 10.0 (8.4-10.2) mg/dL Total Bilirubin 1.2 (0.2-1.3) mg/dL AST 25 (17-59) U/L ALT 14 (4-49) U/L Alkaline Phosphatase 96 (38-126) U/L Total Protein 8.4 H (6.3-8.2) g/dL Albumin 5.1 H (3.5-5.0) g/dL Serum Alcohol <10 mg/dL 01/30/22 Range/Units 17:52 WBC (3.8-10.6) k/uL RBC (4.30-5.90) m/uL Hgb (13.0-17.5) gm/dL Hct (39.0-53.0) % MCV (80.0-100.0) fL MCH (25.0-35.0) pg MCHC (31.0-37.0) g/dL RDW (11.5-15.5) % Plt Count (150-450) k/uL MPV Neutrophils % % Lymphocytes % % Monocytes % % Eosinophils % % Basophils % % Neutrophils # (1.3-7.7) k/uL Lymphocytes # (1.0-4.8) k/uL Monocytes # (0-1.0) k/uL Eosinophils # (0-0.7) k/uL Basophils # (0-0.2) k/uL PT (9.0-12.0) sec INR (<1.2) APTT (22.0-30.0) sec Sodium (137-145) mmol/L Potassium (3.5-5.1) mmol/L Chloride (98-107) mmol/L Carbon Dioxide (22-30) mmol/L Anion Gap mmol/L BUN (9-20) mg/dL Creatinine (0.66-1.25) mg/dL Est GFR (CKD-EPI)AfAm (>60 ml/min/1.73 sqM) Est GFR (CKD-EPI)NonAf (>60 ml/min/1.73 sqM) Glucose (74-99) mg/dL POC Glucose (mg/dL) 87 (70-110) mg/dL POC Glu Ep Technologist ID Yvrose Smith Calcium (8.4-10.2) mg/dL Total Bilirubin (0.2-1.3) mg/dL AST (17-59) U/L ALT (4-49) U/L Alkaline Phosphatase (38-126) U/L Total Protein (6.3-8.2) g/dL Albumin (3.5-5.0) g/dL Serum Alcohol mg/dL - EKG Data EKG Comments: Sinus rhythm with short DC interval intraventricular conduction delay and possible left atrial enlargement ventricular rate 92 bpm, DC interval 140 ms, QRS duration 150 ms QT/QTC 395/445 ms, PRT axes 51, 94, 76 Disposition Clinical Impression: Multiple somatic complaints Disposition: HOME SELF-CARE Condition: Stable Additional Instructions: Please continue healthy diet intake including fluids. Please follow-up with your primary care provider. Please avoid extreme temperatures. Please return to the Emergency Department if symptoms worsen or any other concerns. Is patient prescribed a controlled substance at d/c from ED?: No Referrals: None,Stated [Primary Care Provider] - 1-2 days Time of Disposition: 18:33
--- NOTE | 2022-01-30 16:58 | XR ---
EXAMINATION TYPE: XR chest 2V DATE OF EXAM: 01/30/2022 COMPARISON: Chest x-ray January 06, 2020 HISTORY: Shortness of breath TECHNIQUE: Frontal and lateral views of the chest are obtained. FINDINGS: Overlying sternal wires inferior one which is broken is redemonstrated. Overlying mediastin al clips are redemonstrated. Superior position metallic cardiac valve redemonstrated. Right-sided aor tic arch again seen. There is no focal air space opacity, pleural effusion, or pneumothorax seen. Th e cardiac silhouette size remains within normal limits. The osseous structures are intact. IMPRESSION: No acute process. No significant change from prior.
[2022-01-30 17:45] LABS: Basophils % (A) 1 %; Eosinophils % (A) 0 %; HCT 47.5 % (39.0-53.0); HGB 16.9 gm/dL (13.0-17.5); Lymphocytes # (A) 1.3 k/uL (1.0-4.8); Lymphocytes % (A) 16 %; MCH 32.8 pg (25.0-35.0); MCHC 35.4 g/dL (31.0-37.0); MCV 92.5 fL (80.0-100.0); Mean Platelet Volume 8.9; Monocytes # (A) 0.7 k/uL (0-1.0); Monocytes % (A) 9 %; Neutrophils # (A) 5.4 k/uL (1.3-7.7); Neutrophils % (A) 71 %; Platelet Count 219 k/uL (150-450); RBC 5.14 m/uL (4.30-5.90); RDW 12.5 % (11.5-15.5); WBC 7.7 k/uL (3.8-10.6)
[2022-01-30 17:53] LABS: Glucose,Whole Blood 87 mg/dL (70-110)
[2022-01-30 17:54] LABS: Partial Thromboplastin Time 22.4 sec (22.0-30.0)
[2022-01-30 18:23] LABS: ALT 14 U/L (4-49); AST 25 U/L (17-59); African American GFR (CKD) >90 (>60 ml/min/1.73 sqM); Albumin 5.1 g/dL (3.5-5.0); Alcohol <10 mg/dL; Alkaline Phosphatase 96 U/L (38-126); Anion Gap 19 mmol/L; Blood Urea Nitrogen 7 mg/dL (9-20); Carbon Dioxide 23 mmol/L (22-30); Chloride 99 mmol/L (98-107); Glucose 90 mg/dL (74-99); Non-African American GFR(CKD) >90 (>60 ml/min/1.73 sqM); Potassium 3.4 mmol/L (3.5-5.1); Sodium 141 mmol/L (137-145); Total Bilirubin 1.2 mg/dL (0.2-1.3); Total Protein 8.4 g/dL (6.3-8.2)
[2022-01-30 18:48] VITALS: BP 139/95; PULSE 82; RESP 18
== END 2022-01-30 18:48 | disposition home or self-care (01) ==
LOC: EC 16:25
DX: R13.10 Dysphagia, unspecified (principal); R20.0 Anesthesia of skin
CPT/HCPCS: 36415; 71046; 80053; 80320; 85025; 85610; 85730; 93005; 99285

== ENCOUNTER 2023-01-07 14:40 | Emergency (ER) | payer OTHER ==
[2023-01-07 14:46] VITALS: RESP 18
--- NOTE | 2023-01-07 16:15 | ED ---
General Adult HPI - General Chief complaint: Urogenital Stated complaint: STD/STI test Time Seen by Provider: 01/07/23 15:51 Source: patient Mode of arrival: ambulatory Limitations: no limitations - History of Present Illness Initial comments: 32-year-old male with a past medical history significant for tetralogy of fallot presenting to the ED with a chief complaint of STD. Patient states for the past 2 days has had dysuria and white urethral discharge. States that he is socially active with males and females. States that his male "friend" told him that he tested positive for gonorrhea today and advised him to be tested for STDs. Performed receptive anal sex. Denies rectal pain. Denies testicular swelling or pain. Denies fever. Denies new rashes/lesions. No other complaints. - Related Data Previous Rx's Medication Instructions Recorded Dolutegravir Sodium [Tivicay] 50 mg PO DAILY 28 Days #28 tablet 01/07/23 Doxycycline [Vibramycin] 100 mg PO BID 7 Days #14 capsule 01/07/23 Emtricitabine/Tenofovir (Tdf) 1 tab PO DAILY #25 tab 01/07/23 [Truvada 200 mg-300 mg Tablet] Allergies Allergy/AdvReac Type Severity Reaction Status Date / Time No Known Allergies Allergy Verified 01/07/23 14:46 Review of Systems ROS Statement: Those systems with pertinent positive or pertinent negative responses have been documented in the HPI. ROS Other: All systems not noted in ROS Statement are negative. 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 History of Any Multi-Drug Resistant Organisms: None Reported Past Surgical History: No Surgical Hx Reported Additional Past Surgical History / Comment(s): open heart x 2 Past Psychological History: No Psychological Hx Reported Smoking Status: Never smoker Past Alcohol Use History: Heavy Past Drug Use History: Marijuana General Exam Limitations: no limitations Head exam: Present: atraumatic, normocephalic Respiratory exam: Present: normal lung sounds bilaterally Cardiovascular Exam: Present: normal rhythm, systolic murmur (3/6) GI/Abdominal exam: Present: soft exam: Present: normal inspection, other (No scrotal swelling or testicular pain on palpation. No active discharge.) Neurological exam: Present: alert, oriented X3 Course Vital Signs 01/07/23 14:44 Temperature 97.7 F Pulse Rate 68 Respiratory 18 Rate Blood Pressure 113/80 O2 Sat by Pulse 98 Oximetry Medical Decision Making - Medical Decision Making Was pt. sent in by a medical professional or institution ([facility], [employer], urgent care, hospital, or correction...) When possible be specific @ -No Did you speak to anyone other than the patient for history (EMS, parent, family, police, friend...)? What history was obtained from this source @ -No Did you review nursing and triage notes (agree or disagree)? Why? @ -I reviewed and agree with nursing and triage notes Were old charts reviewed (outside hosp., previous admission, EMS record, old EKG, old radiological studies, urgent care reports/EKG's, correction records)? Report findings @ -No old charts were reviewed Differential Diagnosis (chest pain, altered mental status, abdominal pain women, abdominal pain men, vaginal bleeding, weakness, fever, dyspnea, syncope, headache, dizziness, GI bleed, back pain, seizure, CVA, palpatations, mental health, musculoskeletal)? @ -UTI, prostatitis, epididymitis. This is not meant to be an all-inclusive list. EKG interpreted by me (3pts min.). @ -As above X-rays interpreted by me (1pt min.). @ -None done CT interpreted by me (1pt min.). @ -None done U/S interpreted by me (1pt. min.). @ -None done What testing was considered but not performed or refused? (CT, X-rays, U/S, labs)? Why? @ -None What meds were considered but not given or refused? Why? @ -None Did you discuss the management of the patient with other professionals (professionals i.e. [facility], E[employer]IC ASSEMBLER, lab, RT, psych nurse, social contact worker, supervisor shuttle preparation, teacher, geospatial program management officer, piano case maker)? Give summary @ -No Was smoking cessation discussed for >3mins.? @ -No Was critical care preformed (if so, how long)? @ -No Were there social determinants of health that impacted care today? How? (Homelessness, low income, unemployed, alcoholism, drug addiction, transportation, low edu. Level, literacy, decrease access to med. care, shelter, rehab)? @ -No Was there de-escalation of care discussed even if they declined (Discuss DNR or withdrawal of care, Hospice)? DNR status @ -No What co-morbidities impacted this encounter? (DM, HTN, Smoking, COPD, CAD, Cancer, CVA, ARF, Chemo, Hep., AIDS, mental health diagnosis, sleep apnea, morbid obesity)? @ -None Was patient admitted / discharged? Hospital course, mention meds given and route, prescriptions, significant lab abnormalities, going to OR and other pertinent info. @ -Discharged. UA shows evidence of urinary infection. Patient empirically treated for gonorrhea/chlamydia. Provided 1 g ceftriaxone here and discharged with doxycycline 100 mg twice a day for 7 days. Discussed postexposure prophylaxis with patient for HIV. Patient would like to be started on postexposure prophylaxis. Patient has received hepatitis vaccination. See blood draw for HIV, hepatitis, syphilis testing. Patient provided follow-up with infectious disease. Patient discharged home in stable condition and provided prescription for additional postexposure prophylaxis HIV meds. Undiagnosed new problem with uncertain prognosis? @ -No Drug Therapy requiring intensive monitoring for toxicity (Heparin, Nitro, Insulin, Cardizem)? @ -No Were any procedures done? @ -No Diagnosis/symptom? @ -Gonorrhea/chlamydia, high-risk homosexual behavior Acute, or Chronic, or Acute on Chronic? @ -Acute Uncomplicated (without systemic symptoms) or Complicated (systemic symptoms)? @ -Uncomplicated Side effects of treatment? @ -No Exacerbation, Progression, or Severe Exacerbation? @ -No Poses a threat to life or bodily function? How? (Chest pain, [place], [place], pneumonia, PE, COPD, DKA, ARF, appy, cholecystitis, CVA, Diverticulitis, Homicidal, Suicidal, threat to staff... and all critical care pts) @ -No Disposition Clinical Impression: Chlamydia contact, High risk homosexual behavior, Encounter for HIV screening and discussion of pre-exposure prophylaxis for HIV Disposition: HOME SELF-CARE Condition: Good Instructions (If sedation given, give patient instructions): Postexposure Prophylaxis (ED), HIV Transmission (ED), Safe Sex Practices (ED) Prescriptions: Dolutegravir Sodium [Tivicay] 50 mg PO DAILY 28 Days #28 tablet Emtricitabine/Tenofovir (Tdf) [Truvada 200 mg-300 mg Tablet] 1 tab PO DAILY #25 tab Doxycycline [Vibramycin] 100 mg PO BID 7 Days #14 capsule Is patient prescribed a controlled substance at d/c from ED?: No Referrals: None,Stated [Primary Care Provider] - 1-2 days Rigo Ayala MD [STAFF PHYSICIAN] - 1-2 days Time of Disposition: 17:39
[2023-01-07] MEDS ORDERED: EMTRICITABINE/TENOFOVIR (TDF) 1 EACH, DOLUTEGRAVIR SODIUM 50 MG PO STA ×2 (17:00)
[2023-01-07] MEDS ORDERED: cefTRIAXone 1,000 MG VIAL (IM USE) IM ONE (17:30)
[2023-01-07 18:06] LABS: Appearance,Urine Cloudy (Clear); Bilirubin,Urine Negative (Negative); Blood,Urine Negative (Negative); Color,Urine Light Red; Glucose,Urine (UA) Negative (Negative); Hyaline Casts,Urine 4 /lpf (0-2); Ketones,Urine Negative (Negative); Leukocyte Esterase,Urine Large (Negative); Mucus,Urine Moderate /hpf; Nitrite,Urine Negative (Negative); Protein,Urine 1+ (Negative); RBC,Urine 6 /hpf (0-5); Specific Gravity,Urine 1.019 (1.001-1.035); WBC,Urine >182 /hpf (0-5)
[2023-01-07 18:24] VITALS: BP 104/68; PULSE 70; TEMP 98.3
[2023-01-08 04:48] LABS: Hepatitis A Antibody IgM Nonreactive; Hepatitis B Core IgM Nonreactive; Hepatitis B Surface Antigen Nonreactive; Hepatitis C IgG Antibody Nonreactive
[2023-01-08 05:46] LABS: HIV 2 AB Non-Reactive (Non-Reactive); HIV AB P24 Non-Reactive (Non-Reactive); HIV P24 AG Non-Reactive (Non-Reactive)
[2023-01-08] MEDS ORDERED: cefTRIAXone 1,000 MG VIAL (IM USE) IM SCH (09:00)
[2023-01-09 10:19] LABS: HIV-1 RNA Not detected (Not detected); HIV-1 RNA, Quant <20 Copies/mL (<20); LOG HIV Copies/mL <1.30 (<1.30)
== END 2023-01-07 18:24 | disposition home or self-care (01) ==
LOC: EC 14:40
DX: Z11.4 Encounter for screening for human immunodeficiency virus [HIV] (principal); A74.9 Chlamydial infection, unspecified; F12.90 Cannabis use, unspecified, uncomplicated; Z72.52 High risk homosexual behavior
CPT/HCPCS: 36415; 87536; 80074; 81001; 87491; 87591; 86780; 87390; 99283; 96372; J0696